=== PATIENT | female | born 1985 | race African-American/Black ===

== ENCOUNTER 2023-04-28 13:15 | Emergency (ER) | payer BC ==
[2023-04-28 13:22] VITALS: BP 113/68; PULSE 92; RESP 18; TEMP 98; BMI 28.8
[2023-04-28 14:58] LABS: HCG,QUALITATIVE URINE Positive
[2023-04-28 15:03] LABS: EPI CELLS 6 /uL (0-25.1); HYALINE CASTS 0 /uL (0-3.1); URINE APPEARANCE CLEAR; URINE BACTERIA 208 /uL (0-1359); URINE BILIRUBIN NEGATIVE (NEGATIVE); URINE COLOR YELLOW; URINE GLUCOSE (UA) NEGATIVE (NEGATIVE); URINE KETONE NEGATIVE (NEGATIVE); URINE LEUK ESTERASE NEGATIVE (NEGATIVE); URINE NITRITE NEGATIVE (NEGATIVE); URINE PROTEIN NEGATIVE (NEGATIVE); URINE RBC 7 /uL (0-23.9); URINE UROBILINOGEN 0.2 mg/dL (0.2-1.0); URINE WBC 8 /uL (0-25.8)
[2023-04-28 15:07] LABS: BASO % 0.5 % (0-2.0); EOS % 1.5 % (0-4.5); HEMATOCRIT 37.3 % (32.4-45.2); HEMOGLOBIN 11.8 GM/dL (10.7-15.3); MCH 28.3 pg (25.7-33.7); MCHC 31.5 g/dl (32.0-36.0); MEAN CELL VOLUME 89.8 fl (80-96); MEAN PLT VOLUME 10.5 fl (7.5-11.1); MONO % 9.5 % (3.8-10.2); NEUT % 76.5 % (42.8-82.8); PLATELET COUNT 229 10^3/uL (134-434); RBC 4.15 M/mm3 (3.60-5.2); RDW 13.4 % (11.6-15.6); WHITE BLOOD COUNT 8.8 K/mm3 (4.0-10.0)
[2023-04-28 15:26] LABS: POTASSIUM 4.9 mmol/L (3.5-5.1)
[2023-04-28 15:29] LABS: ALBUMIN 3.3 g/dl (3.4-5.0); BLOOD UREA NITROGEN 8.6 mg/dL (7-18); CALCIUM 8.8 mg/dL (8.5-10.1)
[2023-04-28 15:31] LABS: CREATININE 0.7 mg/dL (0.55-1.3)
[2023-04-28 15:33] LABS: BILIRUBIN,TOTAL 0.3 mg/dL (0.2-1); TOT PROT 7.2 g/dl (6.4-8.2)
[2023-04-28] MEDS ORDERED: METHOTREXATE SODIUM/PF 25 MG/ML VIAL IM ONE (18:22)
== END 2023-04-28 19:39 | disposition home or self-care (01) ==
LOC: JER 13:15 → JERFT 13:15
PROC: 3E023GC Introduction of Other Therapeutic Substance into Muscle, Percutaneous Approach (ICD-10-PCS; principal; 2023-04-28)
DX: O00.102 Left tubal pregnancy without intrauterine pregnancy (principal); O26.891 Other specified pregnancy related conditions, first trimester; R10.31 Right lower quadrant pain
CPT/HCPCS: 36415; 76801-TC; 80053; 81003; 84702; 84703; 85025; 86850; 86900; 86901; 87070; 87086; 87205; 87491; 87591; 87661; 99284-25; J9260

== ENCOUNTER 2023-05-01 12:13 | Emergency (ER) | payer BC ==
[2023-05-01 12:25] VITALS: BP 113/61; PULSE 74; RESP 18; TEMP 99.4; BMI 29.2
[2023-05-01] MEDS ORDERED: METHOTREXATE SODIUM/PF 25 MG/ML VIAL IM ONE (16:12)
== END 2023-05-01 18:02 | disposition home or self-care (01) ==
LOC: JER 12:13
DX: O00.101 Right tubal pregnancy without intrauterine pregnancy (principal); O26.891 Other specified pregnancy related conditions, first trimester; R10.31 Right lower quadrant pain; Z3A.01 Less than 8 weeks gestation of pregnancy
CPT/HCPCS: 36415; 84702; 99284-25; J9260

== ENCOUNTER 2023-05-03 08:50 | Emergency (ER) | payer BC ==
[2023-05-03 08:57] VITALS: BP 111/69; PULSE 83; RESP 18; TEMP 99.5; BMI 29.5
== END 2023-05-03 12:46 | disposition home or self-care (01) ==
LOC: JERFT 08:50
DX: O00.102 Left tubal pregnancy without intrauterine pregnancy (principal); O20.9 Hemorrhage in early pregnancy, unspecified; O26.891 Other specified pregnancy related conditions, first trimester; R10.9 Unspecified abdominal pain; Z3A.01 Less than 8 weeks gestation of pregnancy
CPT/HCPCS: 36415; 84702; 99283-25

== ENCOUNTER 2023-05-05 09:27 | Emergency (ER) | payer BC ==
[2023-05-05 11:14] VITALS: BP 118/94; PULSE 94; RESP 18; TEMP 98.9; BMI 29.5
== END 2023-05-05 11:56 | disposition home or self-care (01) ==
LOC: JER 09:27 → JERFT 09:27
DX: O00.101 Right tubal pregnancy without intrauterine pregnancy (principal); O02.81 Inappropriate change in quantitative human chorionic gonadotropin (hCG) in early pregnancy
CPT/HCPCS: 36415; 84702; 99283-25

== ENCOUNTER 2023-05-08 08:52 | Emergency (ER) | payer BC ==
[2023-05-08 08:58] VITALS: BP 114/63; PULSE 84; RESP 18; TEMP 98.6
== END 2023-05-08 10:47 | disposition home or self-care (01) ==
LOC: JER 08:52 → JERFT 08:52
DX: O02.81 Inappropriate change in quantitative human chorionic gonadotropin (hCG) in early pregnancy (principal); O00.90 Unspecified ectopic pregnancy without intrauterine pregnancy; Z3A.00 Weeks of gestation of pregnancy not specified
CPT/HCPCS: 36415; 84702; 99283-25

== ENCOUNTER → 2023-08-20 | Day surgery (SDC) | payer BC, OTHER | END | disposition home or self-care (01) | LOC: JRADUS-SUR 08-19 12:41 → JASU-SURG 08-19 12:41 → JRADUS-SUR 06:00 | PROVIDERS: ATTEND Student in an Organized Health Care Education/Training Program | PROC: BU18YZZ Fluoroscopy of Uterus and Fallopian Tubes using Other Contrast (ICD-10-PCS; principal; 2023-08-20) | DX: Z87.59 Personal history of other complications of pregnancy, childbirth and the puerperium (principal) | CPT/HCPCS: 58340; 74740-TC-FY; 76000-TC-FY; 84703 ==